=== PATIENT | female | born 1935 | race Caucasian/White ===

== ENCOUNTER 2016-07-11 21:04 | Inpatient (IN) | payer BC ==
--- NOTE | ~2016-07-11 | DS ---
Discharge Summary [facility] [address] [facility] [place] [place]. [address] NAME: STAN DA SILVA : 37 STATUS : DIS IN PAT#: [id number] AGE: 81 ADM/REG DATE : 07/11/16 MR#: [id number] REPORT SERV DATE: 07/26/16 DICTATED BY: HIRAM PRYOR DATE: 07/25/16 REPORT STATUS : Draft TRANSCRIBED BY: YANA DATE: 07/25/16 Data Collection from hospitalization DISCHARGE DIAGNOSES: 1. End-stage renal disease. 2. Bipolar disorder. 3. Hepatitis. 4. Decreased oral intake. 5. Hypertension. 6. Pulmonary edema. 7. Chronic obstructive pulmonary disease. 8. Obstructive sleep apnea. 9. Anemia. 10.Bipolar disorder. 11.Chronic diastolic congestive heart failure. 12.History of herpes zoster. CONSULTATIONS: 1. Ramona Beauchamp M.D. 2. Barry Del Cid M.D. PROCEDURES PERFORMED: 1. CTA of the chest on 07/11/2016. 2. Limited ultrasound of the chest on 07/15/2016. MEDICATIONS: Proventil one nebulized inhaler three times a day as needed; Xanax 0.25 mg daily as needed; Norvasc 5 mg daily; aspirin 81 mg daily; Triphrocaps one capsule daily; Emma-Karen one tablet daily; Pulmicort 0.5 mg via inhaler twice a day; Wellbutrin SR 200 mg every morning and 100 mg every evening; Miacalcin one spray nasally daily; Coreg 3.125 mg twice a day; Colace 100 mg twice a day; ferrous sulfate 325 mg daily; Lasix 40 mg on Saturday, , Saturday, Saturday; Lamictal 25 mg daily; Fosrenol 500 mg with meals, Synthroid 125 mcg daily, Megace oral suspension 400 mg daily, melatonin 3 mg at bedtime, Nitrostat 0.4 mg sublingually as needed, Prilosec 40 mg daily, MiraLAX powder one packet daily, and Marilyn-Colace one tablet at bedtime. CONDITION AT DISCHARGE: Stable. DISPOSITION: The patient was discharged home to be followed by home health care on a renal diet with activities as instructed. She would follow up with outpatient hemodialysis as scheduled. HOSPITAL COURSE: This is a 81-year-old female who dialyzes via a left upper extremity fistula at [facility] on Mondays, Wednesdays, and Fridays. She apparently had an access infiltration the week prior to this admission and required vascular intervention with fistulogram and [facility]ER on 07/06/2016. Her daughter reports that she had a low-grade temperature of approximately 100 on 07/09/2016. She was on dialysis and completed her treatment on the day of this admission, but her heart rate was elevated and they checked a pulse ox and it registered only 80% saturation. She was sent to the emergency room with Discharge Summary [address] [id number] [facility] [place]. [address] NAME: STAN DA SILVA : 37 STATUS : DIS IN PAT#: [id number] AGE: 81 ADM/REG DATE : 07/11/16 MR#: [id number] REPORT SERV DATE: 07/26/16 DICTATED BY: HIRAM PRYOR DATE: 07/25/16 REPORT STATUS : Draft TRANSCRIBED BY: YANA DATE: 07/25/16 concerns of pulmonary embolus. On arrival to the emergency room, her ABG demonstrated a pH of 7.53, pCO2 of 32, and CO2 of 47. Her temperature was in excess of 100 at 100.3. Chest x ray was abnormal with an appearance of what appeared to be either diffuse infiltrate versus fluid. She was admitted to the hospital at this time for further evaluation and treatment. Upon admission, cultures and antibiotics were going to be obtained. A CT scan of the chest was requested. Nebulizer treatments were going to began. A CTA of the chest was performed. The following day, she was seen by Dr. Ramona Beauchamp. Dr. Beauchamp had been asked to see the patient regarding hypoxia. She had dialyzed the day previously, but did not notice any improvement in her dyspnea. It was notable that she had a surgical revision of her fistula and fistulogram six days prior to this at [facility]. Her dyspnea started soon after this procedure. She said that her dyspnea was worse at this time than it was the day previously. She had been on empiric Zosyn and vancomycin for possible pneumonia. Chest imaging was consistent with volume overload. CTA did not reveal any pulmonary embolism. There was cardiomegaly with diffuse interstitial infiltrates consistent with pulmonary edema. There were bilateral pleural effusions with the right being larger than the left. There was associated bibasilar atelectasis. She had evidence for pulmonary edema on CT angiogram and chest x-ray. It was felt that her symptoms were likely related to her volume overload, which may be related to her end-stage renal disease versus cardiogenic. Hemodialysis therapy would be continued. She reported a recent decline in her appetite. She still had persistent shortness of breath. On 07/13/2016, her breathing was much better. She had no cough. She felt like the nebulizers were helping. A Palliative Care consultation was requested. The patient was very emotional and tearful when we discussed possible thoracentesis if needed. Her effusions were better, but she still had a significant right effusion. She was seen by Dr. Barry Del Cid of Palliative Care. The patient was uncertain how much longer to continue hemodialysis as she was finding it harder to do and she never planned on this being a long-term plan of care. Outpatient followup was offered to set goals. Hemodialysis therapy continued. On 07/14/2016, she was feeling much better. She was now agreeable to undergo a thoracentesis. Bronchodilator treatment continued. Chest x-ray showed marked improvement and pulmonary edema. Magnesium supplementation was given. The following day, she felt much better. There was no significant effusion and her thoracentesis was canceled. A limited ultrasound of the chest had been performed. Discharge planning was performed. On 07/16/2016, she continued to do well. Discharge instructions were given. Due to her improved and stable condition, she was discharged home to be followed by home health care with the above-stated instructions. Information collected by: Poornima Toney I submit the above information as my discharge summary. TG/YANA Hiram Pryor M.D. / [id number] Discharge Summary [address] [address] NAME: STAN DA SILVA : 37 STATUS : DIS IN [facility]#: [id number] AGE: 81 ADM/REG DATE : 07/11/16 MR#: [id number] REPORT SERV DATE: 07/26/16 DICTATED BY: HIRAM PRYOR DATE: 07/25/16 REPORT STATUS : Draft TRANSCRIBED BY: YANA DATE: 07/25/16 CC: Harshil Sim M.D. Robert Warren Goldmann, M.D.
--- NOTE | ~2016-07-11 | CN ---
Consultation Report [address] [place]. [address] NAME: STAN DUPONT : 37 STATUS : ADM IN PAT#: [id number] AGE: 81 ADM/REG DATE : 07/11/16 MR#: [id number] REPORT SERV DATE: 07/12/16 DICTATED BY: RAMONA TUTTLE DATE: 07/12/16 REPORT STATUS : Draft TRANSCRIBED BY: MODL DATE: 07/12/16 PULMONARY CONSULTATION DATE OF CONSULTATION: 07/12/2016 REASON FOR CONSULTATION: Hypoxia. HISTORY OF PRESENT ILLNESS: Ms. Dupont is a 81-year-old white female, lifelong nonsmoker, without prior pulmonary diagnosis, who was admitted complaining of five to six days of malaise, increasing shortness of breath, and low-grade fever with temperatures to 100.5 degrees. She denies cough, wheezing, or sputum production. Pulmonary was consulted secondary to hypoxia. The patient has a history of end-stage renal disease, on hemodialysis every Saturday, Saturday, and Saturday. She was dialyzed yesterday, but did not note any improvement in her dyspnea. It is notable that she had a surgical revision of her fistula and fistulogram six days ago at [facility]. Her dyspnea started soon after this procedure. No medical records from that are available for review. She states her dyspnea is worse today than it was yesterday. She has been on empiric Zosyn and vancomycin for possible pneumonia. Her chest imaging here at this admission is consistent with volume overload. PAST MEDICAL HISTORY: 1. She denies a past medical history of COPD or asthma. 2. She denies obstructive sleep apnea. 3. End-stage renal disease, secondary to immune complex glomerulonephritis. 4. Congestive heart failure, diastolic dysfunction. 5. Hypertension. 6. Bipolar disorder. 7. Right total hip arthroplasty. 8. GERD. 9. Irritable bowel syndrome. 10.Previous herpes zoster. 11.Prior right shoulder surgery. 12.Appendectomy. 13.Tubal ligation. 14.Cholecystectomy. 15.Left knee surgery. 16.Previous sinus surgery. FAMILY HISTORY: Smoker mother had lung cancer. Consultation Report [address] [id number] [facility] [place]. [address] NAME: STAN DUPONT : 37 STATUS : ADM IN PAT#: [id number] AGE: 81 ADM/REG DATE : 07/11/16 MR#: [id number] REPORT SERV DATE: 07/12/16 DICTATED BY: RAMONA TUTTLE DATE: 07/12/16 REPORT STATUS : Draft TRANSCRIBED BY: YANA DATE: 07/12/16 SOCIAL HISTORY: Ms. Dupont is a lifelong nonsmoker. She denies past/present drug use, ethanol intake, occupational exposures, or chewing tobacco. She is and has three children. MEDICATIONS: Outpatient and inpatient medications were reviewed and are as documented in the record. She was on no outpatient pulmonary medications and denies ever being on inhalers or nebulized medications. ALLERGIES: HYDROCODONE, CODEINE, TOVIAZ, AND ARANESP. REVIEW OF SYSTEMS: A 10-point system review was conducted and is remarkable for the symptoms as described in the history of present illness: PHYSICAL EXAMINATION: VITAL SIGNS: Temperature 99.6 degrees, heart rate 96, blood pressure 173/79, respiratory rate 20, oxygen saturation 94% on supplemental oxygen at a flow rate of 14 L/minute. GENERAL: Ill-appearing, pale white female. Alert, oriented, in no apparent distress. HEENT: Normocephalic and atraumatic. There is no scleral icterus. The conjunctivae are clear. The oropharynx is clear and dry. NECK: Supple. No lymphadenopathy was noted. LUNGS: Good effort. There are diminished breath sounds at both bases with the right being worse than the left. There are bibasilar crackles, but no wheezes or rhonchi. HEART: Regular rate and rhythm. No S3 or S4 was noted. No ectopy was noted. ABDOMEN: Soft, nontender, nondistended. There are normal bowel sounds in all four quadrants. BILATERAL EXTREMITIES: There is no clubbing or cyanosis. There is nonpitting edema in both lower extremities. NEUROLOGICAL: Limited exam was conducted and was found to be nonfocal. SKIN: Generalized pallor. There are scattered ecchymoses on the upper and lower extremities. LABORATORY RESULTS: Labs were reviewed and are as documented in the record. Notable labs include a white blood cell count of 9.1. The procalcitonin is 0.63. Arterial blood gas #1 on admission revealed a pH of 7.53, pCO2 of 32, and pO2 of 47. This was done on room air. A subsequent arterial blood gas revealed a pH of 7.49, pCO2 of 31, pO2 of 68 on supplemental oxygen at 60%. IMAGING: The chest x-ray done this admission revealed diffuse interstitial opacities, consistent with pulmonary edema. There were small bilateral effusions and cardiomegaly. CT angiogram done this admission did not reveal any pulmonary embolism. There is Consultation Report [place] [address] [id number] [facility] [address] NAME: STAN DUPONT : 37 STATUS : ADM IN PAT#: [id number] AGE: 81 ADM/REG DATE : 07/11/16 MR#: [id number] REPORT SERV DATE: 07/12/16 DICTATED BY: RAMONA TUTTLE DATE: 07/12/16 REPORT STATUS : Draft TRANSCRIBED BY: YANA DATE: 07/12/16 cardiomegaly with diffuse interstitial infiltrates, consistent with pulmonary edema. There are bilateral pleural effusions with the right being larger than the left. There is associated bibasilar atelectasis. ASSESSMENT AND PLAN: Ms. Stan Dupont is a 81-year-old white female, lifelong nonsmoker, without previous pulmonary diagnosis, who was admitted with hypoxia and associated worsening shortness of breath as well as malaise and low-grade fevers. She has evidence of pulmonary edema on CT angiogram and chest x-ray as noted above. Her symptoms are likely related to her volume overload, which may be related to her end-stage renal disease versus cardiogenic. Recommend hemodialysis as per Nephrology. As noted above, she is on empiric antibiotics with vancomycin and Zosyn. There is no evidence of active pulmonary infection, though her procalcitonin is elevated. This is likely related to her end-stage renal disease. It is reasonable to continue her empiric antibiotics for now. A sputum has been ordered, though the patient is currently unable to expectorate. 1. Recommend titrating supplemental oxygen as needed. She may ultimately need Vapotherm if her pulmonary edema does not improve. 2. We will add bronchodilators and nebulized steroids to her regimen as this may be of some benefit, particularly in light of her significant dyspnea. 3. If she tires, then may use BiPAP. 4. Recommend improving pulmonary toilet, so EzPAP will be added to her regimen. 5. Would follow her chest x-ray. She should improve with hemodialysis. 6. Recommend checking an echocardiogram when her volume status has improved. Thank you very much for this consultation. VALDEZ/YANA Ramona Tuttle M.D. / [id number] CC: Harshil Sim M.D.
--- NOTE | ~2016-07-11 | HP ---
History And Physical [id number] [facility] [place]. [address] NAME: STAN DUPONT : 37 STATUS : ADM IN [facility]#: [id number] AGE: 81 ADM/REG DATE : 07/11/16 MR#: [id number] REPORT SERV DATE: 07/12/16 DICTATED BY: RAYMUNDO SALINAS DATE: 07/11/16 REPORT STATUS : Draft TRANSCRIBED BY: MODL DATE: 07/11/16 DATE OF ADMISSION: 07/11/2016 INDICATION FOR ADMISSION: Fever, hypoxemia. HISTORY OF PRESENT ILLNESS: Ms. Dupont is a 81-year-old female who dialyzes by left upper extremity fistula at [facility] on Saturday, Saturday, and Saturday. She apparently had an access infiltration last week, and required vascular intervention with fistulogram and [employer] on 07/06/2016. Her daughter reports that she had a low-grade temp of approximately 100 degrees on 07/09/2016. She was on dialysis and completed her treatment today, but her heart rate was elevated and they checked pulse ox, and it registered only 80% saturation. She was sent to the emergency room with concerns of pulmonary embolus. Upon arrival to the emergency room, her ABG demonstrated a pH of 7.53, PCO2 of 32, and PO2 of 47. She had a temp in excess of 100 at 100.3. Chest x-ray was abnormal with an appearance with what appeared to be either diffuse infiltrate versus fluid. PAST MEDICAL HISTORY: End-stage renal disease dialyzing Saturday, Saturday, Saturday at [facility] by left upper extremity AV fistula. History of immune complex GN by renal biopsy, progressing to end-stage disease. History of hepatitis, COPD, hypertension, bipolar disorder, hypothyroidism, chronic diastolic CHF, obstructive sleep apnea on CPAP, herpes zoster infection, and right hip fracture requiring right total hip arthroplasty. PAST SURGICAL HISTORY: Left knee surgery, right shoulder surgery, appendectomy, cholecystectomy, tubal ligation, sinus surgery, and right hip surgery. ALLERGIES: TO ARANESP, LORTAB, TOVIAZ, AND CODEINE. SOCIAL HISTORY: The patient lives on [address] [place], active Mandaeism, 25 years ago. Two daughters and one son, with a one daughter living locally. She used to work for the [employer]. No tobacco use or alcohol use. FAMILY HISTORY: Mother with lung cancer. Strong family history of dementia, heart disease, and gout. No end-stage renal disease. MEDICATIONS: Norvasc, Wellbutrin, Tums, Coreg, Colace, ferrous sulfate, Fosrenol, Synthroid, B complex with C and folic acid, Prilosec, MiraLAX, Coumadin, sliding scale, Tylenol, Xanax, Percocet. REVIEW OF SYSTEMS: HEENT: No change in visual acuity. No epistaxis. No otic infection. No pharyngitis. PULMONARY: Some mild shortness of breath. Nonproductive cough. No pleuritic chest pain. CARDIAC: No angina. Has chronic lower extremity edema. No syncope. GI: Mild nausea. No vomiting, melena, or diarrhea. : No dysuria. No gross hematuria. MUSCULOSKELETAL: Chronic pain in right hip. INTEGUMENT: No rash. No skin lesions. No itching. History And Physical [address] [address] NAME: STAN DUPONT : 37 STATUS : ADM IN [facility]#: [id number] AGE: 81 ADM/REG DATE : 07/11/16 MR#: [id number] REPORT SERV DATE: 07/12/16 DICTATED BY: RAYMUNDO SALINAS DATE: 07/11/16 REPORT STATUS : Draft TRANSCRIBED BY: YANA DATE: 07/11/16 NEUROLOGIC: No lateralizing weakness or seizure activity. Remainder of 12-point review of systems is negative. PHYSICAL EXAMINATION: GENERAL: Pleasant white female, alert, cooperative. VITAL SIGNS: Temp 100.3, blood pressure 183/87, pulse of 99, respiratory rate 14. HEENT: Eyes, no scleral icterus. Pupils equal, reactive to light. Extraocular movement intact. Nares patent. No discharge. Throat, no injection. Mucous membranes moist. NECK: No thyromegaly, masses, or bruits. CHEST/LUNGS: Late crackles laterally, posteriorly. No wheezing. No dullness. CARDIAC: Regular rate and rhythm, 1/6 systolic ejection murmur. No gallop. No rub. ABDOMEN: Supple. Normoactive bowel sounds. Nontender. No hepatosplenomegaly. BREASTS: Not performed. PELVIC: Not performed RECTAL: Not performed. EXTREMITIES: Trace edema. No calf tenderness. DERMIS: No rash. No skin lesions. MUSCULOSKELETAL: No deformity. No joint tenderness. NEUROLOGIC: Cranial nerves intact. No lateralizing weakness. IMPRESSION: 1. Acute hypoxemic respiratory failure. Etiologies include possible differential of infection, congestive heart failure, pulmonary embolus. 2. End-stage renal disease, dialyzing Saturday, Saturday, Saturday at [facility] by left upper extremity AV fistula with recent infiltration and recent angioplasty. 3. Chronic obstructive pulmonary disease. 4. Hypertension. 5. Bipolar disease. 6. Hypothyroidism. 7. Chronic diastolic congestive heart failure. 8. Obstructive sleep apnea. PLAN: 1. Cultures antibiotics. 2. CT scan of chest. 3. Neb treatment. KADE/YANA Raymundo Salinas M.D. / [id number] History And Physical [address] [address] NAME: STAN DUPONT : 37 STATUS : ADM IN [facility]#: [id number] AGE: 81 ADM/REG DATE : 07/11/16 MR#: [id number] REPORT SERV DATE: 07/12/16 DICTATED BY: RAYMUNDO SALINAS DATE: 07/11/16 REPORT STATUS : Draft TRANSCRIBED BY: YANA DATE: 07/11/16 CC: Harshil Sim M.D.
[2016-07-11 20:25] LABS: INSTRUMENT SERIAL # 8087
[2016-07-11 20:26] LABS: BE (BASE EXCESS) 3.3 MEQ/L (0 +/- 2.5); CARBOXYHEMOGLOBIN 2.4 % (0-3); HCO3 (ACTUAL BICARBONATE) 25.8 MEQ/L (23-27); HEMOBLOGIN CONTENT 10.8 G/DL (12-16); METHEMOGLOBIN 0.3 % (0-3); O2 CONTENT 12.4 VOL% (18-24); OPERATOR ID 17589; PCO2 (CO2 TENSION) 32 MMHG (35-45); PO2 (O2 TENSION) 47 MMHG (79-93); SAMPLE Arterial; pH 7.53 (7.37-7.43)
[~2016-07-11 21:04] MED LIST: ANTACID PO; ASAB PO; BENEFIBE6 PO; BENTYL10 PO; BISR PR; BIST PO; CIP2 PO; COREG12 PO; COREG6 PO; DEMA100 PO; DSS PO; FLAG500TAB PO; FOSRENOL1000 MG PO; GEODON20 PO; HALF81 PO; IMOD PO; KLONO5 PO; L20 PO; LATUDA20 MG PO; LEVOTHYROXIN100 MCG PO; LEVOTHYROXIN75 MCG PO; LEVOTHYROXIN88 MCG PO; LIQUITEARS OPH; MELATONIN5 M1 PO; MIRALAXPKT PO; NITROSTAT0.4 MG SL; NORV10 PO; NORV5 PO; PR12.5 PO; PRILO PO; PROCRIT40 IV; PROCRIT40 SC; RENAL SFTGLS1 MG PO; RENATAB1 OR; RESTASIS OPH; SEROQUEL50 MG PO; SODBICAR10 PO; STOOL SOFTEN100 MG PO; SYN1 PO; SYSTANE OP; SYSTANE OPH; TRIPHROCAPS PO; TUMSROLL PO; VITC500 PO; VITD PO; WELLBUTRIN200 MG PO; WELLSR100 PO; WELLSR150 PO; X25 PO; X5 PO; ZOFRAN4 PO; ZOFRAN8 PO; [UNRECOGNIZED DRUG - OTHER]; [UNRECOGNIZED DRUG - OTHER] OR; [UNRECOGNIZED DRUG - OTHER] PO
[2016-07-11 21:56] LABS: BASOPHILS 0.4 %; BASOPHILS ABSOLUTE 0.04 10/3/uL (0.0-0.16); EOSINOPHILS 1.7 %; EOSINOPHILS ABSOLUTE 0.15 10/3/uL (0.0-0.53); HEMATOCRIT 29.9 % (36.0-48.0); IMMATURE GRANULOCYTES 0.2 %; IMMATURE GRANULOCYTES ABSOLUTE 0.02 10/3/uL (0.0-0.11); LYMPHOCYTES 18.2 %; LYMPHOCYTES ABSOLUTE 1.65 10/3/uL (0.67-4.30); MEAN CORPUS HGB CONC 33.4 g/dL (32.0-36.0); MEAN CORPUSCULAR HEMOGLOB 34.6 pg (26.0-34.0); MEAN PLATELET VOLUME 9.5 fL (9.2-13.0); MONOCYTES 7.7 %; NEUTROPHILS 71.8 %; NEUTROPHILS ABSOLUTE 6.49 10/3/uL (2.02-8.40); PLATELET COUNT 175 10/3/uL (150-400); RBC DISTRIBUTION WIDTH 14.9 % (12.0-16.0); RED CELL COUNT 2.89 10/6/uL (4.0-5.6)
[2016-07-11 21:57] LABS: ER CBC TAT 0 Hrs 08 Mins; MANUAL DIFF NO %; MEAN CORPUSCULAR VOLUME 103.5 fL (80-100); WHITE BLOOD CELLS 9.1 10/3/uL (4.5-10.5)
[2016-07-11 22:16] LABS: A/G RATIO 0.9 (0.7-1.9); ALBUMIN 2.8 G/DL (3.5-5.0); CALCIUM, SERUM 7.9 MG/DL (8.5-10.4); CHLORIDE, SERUM 102 MMOL/L (96-112); CO2 (CARBON DIOXIDE) 27 MMOL/L (24-34); SGOT(AST) 15 U/L (5-40); SGPT(ALT) 13 U/L (5-65); SODIUM, SERUM 138 MMOL/L (135-148); TOTAL BILIRUBIN 0.6 MG/DL (0-1.2); TOTAL PROTEIN 5.8 G/DL (6.0-8.5)
[2016-07-11 22:17] LABS: ALKALINE PHOSPHATASE 83 U/L (45-117); BUN (BLOOD UREA NITROGEN) 14 MG/DL (6-23); CREATININE 2.12 MG/DL (0.55-1.02); GFR AFRICAN AMERICAN 25 ML/MIN (>=60); GFR NON AFRICAN AMERICAN 22 ML/MIN (>=60); GLUCOSE, SERUM 116 MG/DL (60-99)
[2016-07-11] MEDS ORDERED: X25 PO (22:18)
[2016-07-11] MEDS ORDERED: ASAB PO (22:19)
[2016-07-11] MEDS ORDERED: NORV5 PO (22:19)
[2016-07-11] MEDS ORDERED: FERROUS SULF325 M1 PO (22:20)
[2016-07-11] MEDS ORDERED: COREG3 PO (22:20)
[2016-07-11] MEDS ORDERED: DSS PO (22:20)
[2016-07-11] MEDS ORDERED: L40 PO (22:21)
[2016-07-11] MEDS ORDERED: LAMICTAL25 PO (22:21)
[2016-07-11] MEDS ORDERED: FOSRENOL PO (22:21)
[2016-07-11] MEDS ORDERED: NITROSTAT0.4 MG SL (22:22)
[2016-07-11] MEDS ORDERED: PCET PO (22:22)
[2016-07-11] MEDS ORDERED: MELA3 PO (22:22)
[2016-07-11] MEDS ORDERED: MIRALAX POWDER1 PKT PO (22:22)
[2016-07-11] MEDS ORDERED: PERI-COLACE1 TAB PO (22:23)
[2016-07-11] MEDS ORDERED: RENA-VITE PO (22:23)
[2016-07-11] MEDS ORDERED: PRILOSEC40 MG PO (22:23)
[2016-07-11] MEDS ORDERED: TRIPHROCAPS PO (22:24)
[2016-07-11] MEDS ORDERED: SYN125 PO (22:24)
[2016-07-11] MEDS ORDERED: WELLSR100 PO ×2 (22:24)
[2016-07-11] MEDS ORDERED: MIACALCIN NAS (22:25)
[2016-07-11 22:26] LABS: INFLUENZA A SCREEN NEGATIVE (NEGATIVE); INFLUENZA B SCREEN NEGATIVE (NEGATIVE)
[2016-07-11 22:54] LABS: ASCORBIC ACID (UR NOT ORDER) NEG (NEG); BILIRUBIN, URINE NEGATIVE (NEG); ER URINALYSIS TAT 0 Hrs 09 Mins; KETONE, URINE NEGATIVE (NEG); LEUKOCYTE ESTERASE(NOT OR NEG (NEG); NITRITE (URINE) NEG (NEG); WBC (NOT ORDERED) (RFLEX) 2 (0-5)
[2016-07-12 04:24] LABS: ALLENS TEST Pos; CARBOXYHEMOGLOBIN 0.6 % (0-3); DEVICE NC; HCO3 (ACTUAL BICARBONATE) 22.8 MEQ/L (23-27); HEMOBLOGIN CONTENT 11.3 G/DL (12-16); INSTRUMENT SERIAL # 11843; METHEMOGLOBIN 0.2 % (0-3); O2 CONTENT 14.7 VOL% (18-24); OPERATOR ID 30014; PCO2 (CO2 TENSION) 31 MMHG (35-45); PO2 (O2 TENSION) 68 MMHG (79-93); SAMPLE Arterial; pH 7.49 (7.37-7.43)
[2016-07-12 10:09] LABS: ALBUMIN 2.9 G/DL (3.5-5.0); CHLORIDE, SERUM 105 MMOL/L (96-112); CO2 (CARBON DIOXIDE) 25 MMOL/L (24-34); GLUCOSE, SERUM 109 MG/DL (60-99); POTASSIUM, SERUM 3.3 MMOL/L (3.5-5.3); SODIUM, SERUM 140 MMOL/L (135-148)
[2016-07-12 10:11] LABS: BUN (BLOOD UREA NITROGEN) 19 MG/DL (6-23); CREATININE 2.82 MG/DL (0.55-1.02); GFR AFRICAN AMERICAN 18 ML/MIN (>=60); GFR NON AFRICAN AMERICAN 15 ML/MIN (>=60); PHOSPHORUS, SERUM 2.8 MG/DL (2.5-4.5); TROPONIN I 0.06 NG/ML (<0.05)
[2016-07-13 05:59] LABS: BASOPHILS 0.9 %; BASOPHILS ABSOLUTE 0.06 10/3/uL (0.0-0.16); EOSINOPHILS 5.5 %; EOSINOPHILS ABSOLUTE 0.36 10/3/uL (0.0-0.53); HEMATOCRIT 28.9 % (36.0-48.0); HEMOGLOBIN 9.4 g/dL (12.0-16.0); IMMATURE GRANULOCYTES 0.2 %; IMMATURE GRANULOCYTES ABSOLUTE 0.01 10/3/uL (0.0-0.11); LYMPHOCYTES 21.9 %; LYMPHOCYTES ABSOLUTE 1.44 10/3/uL (0.67-4.30); MEAN CORPUS HGB CONC 32.5 g/dL (32.0-36.0); MEAN CORPUSCULAR HEMOGLOB 34.4 pg (26.0-34.0); MEAN CORPUSCULAR VOLUME 105.9 fL (80-100); MEAN PLATELET VOLUME 9.4 fL (9.2-13.0); MONOCYTES 11.1 %; MONOCYTES ABSOLUTE 0.73 10/3/uL (0.21-1.20); NEUTROPHILS 60.4 %; NEUTROPHILS ABSOLUTE 3.98 10/3/uL (2.02-8.40); PLATELET COUNT 201 10/3/uL (150-400); RED CELL COUNT 2.73 10/6/uL (4.0-5.6); WHITE BLOOD CELLS 6.6 10/3/uL (4.5-10.5)
[2016-07-13 06:10] LABS: MANUAL DIFF NO %
[2016-07-13 06:16] LABS: ALBUMIN 2.6 G/DL (3.5-5.0); BUN (BLOOD UREA NITROGEN) 19 MG/DL (6-23); CALCIUM, SERUM 7.2 MG/DL (8.5-10.4); CHLORIDE, SERUM 109 MMOL/L (96-112); CO2 (CARBON DIOXIDE) 24 MMOL/L (24-34); CREATININE 2.83 MG/DL (0.55-1.02); GFR AFRICAN AMERICAN 18 ML/MIN (>=60); GFR NON AFRICAN AMERICAN 15 ML/MIN (>=60); GLUCOSE, SERUM 97 MG/DL (60-99); PHOSPHORUS, SERUM 2.1 MG/DL (2.5-4.5); SODIUM, SERUM 145 MMOL/L (135-148)
[2016-07-13 06:17] LABS: POTASSIUM, SERUM 4.2 MMOL/L (3.5-5.3)
[2016-07-14 05:41] LABS: BASOPHILS 0.8 %; BASOPHILS ABSOLUTE 0.05 10/3/uL (0.0-0.16); EOSINOPHILS 7.6 %; EOSINOPHILS ABSOLUTE 0.49 10/3/uL (0.0-0.53); HEMATOCRIT 31.5 % (36.0-48.0); HEMOGLOBIN 9.9 g/dL (12.0-16.0); IMMATURE GRANULOCYTES 0.2 %; IMMATURE GRANULOCYTES ABSOLUTE 0.01 10/3/uL (0.0-0.11); LYMPHOCYTES ABSOLUTE 1.94 10/3/uL (0.67-4.30); MEAN CORPUS HGB CONC 31.4 g/dL (32.0-36.0); MEAN CORPUSCULAR HEMOGLOB 33.8 pg (26.0-34.0); MEAN CORPUSCULAR VOLUME 107.5 fL (80-100); MEAN PLATELET VOLUME 9.4 fL (9.2-13.0); MONOCYTES 7.7 %; NEUTROPHILS 53.7 %; NEUTROPHILS ABSOLUTE 3.47 10/3/uL (2.02-8.40); PLATELET COUNT 256 10/3/uL (150-400); RBC DISTRIBUTION WIDTH 15.1 % (12.0-16.0); RED CELL COUNT 2.93 10/6/uL (4.0-5.6); WHITE BLOOD CELLS 6.5 10/3/uL (4.5-10.5)
[2016-07-14 05:42] LABS: MANUAL DIFF NO %
[2016-07-14 06:00] LABS: ALBUMIN 3.1 G/DL (3.5-5.0); BUN (BLOOD UREA NITROGEN) 13 MG/DL (6-23); CALCIUM, SERUM 8.1 MG/DL (8.5-10.4); CHLORIDE, SERUM 107 MMOL/L (96-112); CO2 (CARBON DIOXIDE) 28 MMOL/L (24-34); CREATININE 2.79 MG/DL (0.55-1.02); GFR AFRICAN AMERICAN 18 ML/MIN (>=60); GFR NON AFRICAN AMERICAN 15 ML/MIN (>=60); GLUCOSE, SERUM 105 MG/DL (60-99); PHOSPHORUS, SERUM 1.6 MG/DL (2.5-4.5); SODIUM, SERUM 143 MMOL/L (135-148)
[2016-07-14 12:06] LABS: INTERNATIONAL NORMAL RATI 1.2 UNITS (-); PARTIAL THROMBO TIME 37.4 SEC (22.5-37.2)
[2016-07-14 12:07] LABS: PROTIME (NOT ORD) 14.8 SEC (12.0-14.5)
[2016-07-16 09:20] LABS: BASOPHILS 1.4 %; BASOPHILS ABSOLUTE 0.11 10/3/uL (0.0-0.16); EOSINOPHILS 5.2 %; EOSINOPHILS ABSOLUTE 0.41 10/3/uL (0.0-0.53); HEMATOCRIT 31.3 % (36.0-48.0); HEMOGLOBIN 10.4 g/dL (12.0-16.0); IMMATURE GRANULOCYTES 0.4 %; IMMATURE GRANULOCYTES ABSOLUTE 0.03 10/3/uL (0.0-0.11); LYMPHOCYTES ABSOLUTE 3.22 10/3/uL (0.67-4.30); MANUAL DIFF NO %; MEAN CORPUS HGB CONC 33.2 g/dL (32.0-36.0); MEAN CORPUSCULAR HEMOGLOB 34.4 pg (26.0-34.0); MEAN CORPUSCULAR VOLUME 103.6 fL (80-100); MONOCYTES 6.4 %; NEUTROPHILS 45.6 %; NEUTROPHILS ABSOLUTE 3.58 10/3/uL (2.02-8.40); PLATELET COUNT 378 10/3/uL (150-400); RED CELL COUNT 3.02 10/6/uL (4.0-5.6); WHITE BLOOD CELLS 7.9 10/3/uL (4.5-10.5)
[2016-07-16 09:33] LABS: ALBUMIN 3.3 G/DL (3.5-5.0); CALCIUM, SERUM 8.8 MG/DL (8.5-10.4); CHLORIDE, SERUM 106 MMOL/L (96-112); GLUCOSE, SERUM 117 MG/DL (60-99); POTASSIUM, SERUM 3.9 MMOL/L (3.5-5.3); SODIUM, SERUM 141 MMOL/L (135-148)
[2016-07-16 09:34] LABS: BUN (BLOOD UREA NITROGEN) 34 MG/DL (6-23); CO2 (CARBON DIOXIDE) 23 MMOL/L (24-34); CREATININE 5.04 MG/DL (0.55-1.02); GFR AFRICAN AMERICAN 9 ML/MIN (>=60); GFR NON AFRICAN AMERICAN 8 ML/MIN (>=60); PHOSPHORUS, SERUM 3.4 MG/DL (2.5-4.5)
[2016-07-16] MEDS ORDERED: PULRESP.5 INH ×2 (13:58→13:59)
[2016-07-16] MEDS ORDERED: ALBUTEROL5 INH (14:00)
[2016-07-16] MEDS ORDERED: MEGACEUDL PO (14:01)
[2016-10-08] MEDS ORDERED: COREG6 PO (08:55)
[2016-10-08] MEDS ORDERED: LAMICTAL10 PO (08:55)
[2016-10-08] MEDS ORDERED: TUMSROLL PO (09:00)
[2016-10-08] MEDS ORDERED: RENAL SFTGLS1 MG PO (09:00)
[2016-10-08] MEDS ORDERED: BIST PO (09:01)
[2016-10-08] MEDS ORDERED: IMOD PO (09:01)
[2016-10-08] MEDS ORDERED: FENESIN IR400 MG PO (09:02)
[2016-10-08] MEDS ORDERED: AT25 PO (09:03)
[2016-10-08] MEDS ORDERED: ENDOCET1 TAB PO (09:04)
[2016-10-08] MEDS ORDERED: LIPITOR20 PO (09:04)
[2016-10-08] MEDS ORDERED: PROCRIT (09:06)
[2016-10-08] MEDS ORDERED: WELLSR100 PO (11:00)
[2016-12-18] MEDS ORDERED: LATUDA40 MG PO (08:09)
== END 2016-07-16 15:46 | disposition home health service (06) | DRG 291 ==
LOC: ER 21:04 → 2SO 23:21
PROVIDERS: Hospitalist; Internal Medicine; Internal Medicine Nephrology; Nurse Practitioner
PROC: 5A1D60Z (ICD-10-PCS; principal; 2016-07-12)
DX: I13.2 Hypertensive heart and chronic kidney disease with heart failure and with stage 5 chronic kidney disease, or end stage renal disease (principal); J96.01 Acute respiratory failure with hypoxia; N18.6 End stage renal disease; I50.33 Acute on chronic diastolic (congestive) heart failure; J44.9 Chronic obstructive pulmonary disease, unspecified; Z51.5 Encounter for palliative care; F31.9 Bipolar disorder, unspecified; K21.9 Gastro-esophageal reflux disease without esophagitis; E03.9 Hypothyroidism, unspecified; G47.33 Obstructive sleep apnea (adult) (pediatric); Z99.2 Dependence on renal dialysis; Z80.1 Family history of malignant neoplasm of trachea, bronchus and lung; Z88.5 Allergy status to narcotic agent; Z88.8 Allergy status to other drugs, medicaments and biological substances; Z96.641 Presence of right artificial hip joint
CPT/HCPCS: 36600; 71010; 71020; 71275; 76604; 80053; 80069; 80202; 81001; 82805; 83735; 83880; 84145; 84484; 85025; 85610; 85730; 87040; 87070; 87205; 87804; 93005; 94640; 96374; 99285; A9270-GY; G0257; J0456; J0692; J2543; J3370; P9047; Q9967

== ENCOUNTER 2016-08-25 15:03 | Inpatient (IN) | payer BC ==
--- NOTE | ~2016-08-25 | HP ---
History And Physical [id number] [facility] [place]. [address] NAME: STAN DUPONT : 37 STATUS : ADM Brad PAT#: [id number] AGE: 81 ADM/REG DATE : 08/25/16 MR#: [id number] REPORT SERV DATE: 08/26/16 DICTATED BY: RAYMUNDO GARSIA DATE: 08/25/16 REPORT STATUS : Draft TRANSCRIBED BY: MODL DATE: 08/25/16 DATE OF ADMISSION: 08/25/2016 NEPHROLOGY HISTORY AND PHYSICAL INDICATION FOR HOSPITALIZATION: Shortness of breath with congestive heart failure and UTI. HISTORY OF PRESENT ILLNESS: Ms. Dupont is a 81-year-old female who dialyzes by left upper extremity fistula at [facility] on Saturday, Saturday, and Saturday. She presented to the emergency room complaining of weakness, fever, and dysuria. She had recently been started on Cipro in the outpatient setting, but was still having symptoms. Her urinalysis demonstrated 80 wbc's and small leukocyte esterase. Her CBC revealed white count of 5200 and hemoglobin of 10.6 while her potassium was 3.3 and creatinine was 3.9. Her chest x-ray was suggestive of CHF. She had a blood gas on room air with PO2 of 62 and O2 sat of 91. PAST MEDICAL HISTORY: End-stage renal disease, dialyzing Saturday, Saturday, and Saturday at [facility] by left upper extremity AV fistula; chronic diastolic CHF; COPD; obstructive sleep apnea, on CPAP; bipolar illness; hypertension; history of hepatitis; hypothyroidism; remote herpes zoster infection; and anemia. PAST SURGICAL HISTORY: Left knee surgery, right shoulder surgery, appendectomy, cholecystectomy, tubal ligation, sinus surgery, and right hip surgery. ALLERGIES: ARANESP, LORTAB, TOVIAZ, AND CODEINE. SOCIAL HISTORY: The patient lives on [address], active Sikhism. , 25 years. Two daughters, one son, and one daughter living locally. She used to work for the [employer]. No tobacco or alcohol use. FAMILY HISTORY: Mother of lung cancer. Strong family history of heart disease, dementia, and gout. No end-stage renal disease. MEDICATIONS: Norvasc, Wellbutrin, Tums, Coreg, Colace, ferrous sulfate, Fosrenol, Synthroid, B complex with C, folic acid, Prilosec, MiraLAX, Coumadin, sliding scale, Tylenol, Xanax, and Percocet. REVIEW OF SYSTEMS: HEENT: No change in visual acuity. No epistaxis. No otic infection. No pharyngitis. PULMONARY: Notes persistent shortness of breath, and intermittent cough, nonproductive. No pleuritic chest pain. CARDIAC: No angina. Has chronic lower extremity edema. Denies dizziness or syncope. GASTROINTESTINAL: Intermittent nausea. No vomiting, melena, or diarrhea. GENITOURINARY: Has noted dysuria. No gross hematuria or pyuria. MUSCULOSKELETAL: Chronic pain in right hip. INTEGUMENT: No rash. No skin lesions. No itching. NEUROLOGIC: No lateralizing weakness or seizure activity. History And Physical [address] [place]. [address] NAME: STAN DUPONT : 37 STATUS : ADM Brad PAT#: [id number] AGE: 81 ADM/REG DATE : 08/25/16 MR#: [id number] REPORT SERV DATE: 08/26/16 DICTATED BY: RAYMUNDO GARSIA DATE: 08/25/16 REPORT STATUS : Draft TRANSCRIBED BY: YANA DATE: 08/25/16 Remainder of 12-point review of systems is negative. PHYSICAL EXAMINATION: VITAL SIGNS: Blood pressure 159/79, temperature 98.5, pulse 87, and respiratory rate 20. GENERAL: Pleasant female, alert and cooperative. HEENT: Eyes, no scleral icterus. Pupils equal and reactive to light. Extraocular movement intact. Nares patent, no discharge. Throat, no injection. Mucous membranes moist. NECK: No thyromegaly, masses, bruits. CHEST/LUNGS: Light crackles posteriorly. Few scattered rhonchi. CARDIAC: Regular rate and rhythm. A 1/6 systolic ejection murmur. No gallop. No rub. ABDOMEN: Supple. Normoactive bowel sounds. Nontender. No hepatosplenomegaly. GENITOURINARY: Not performed. RECTAL: Not performed. BREASTS: Not performed. DERMIS: No rash. No skin lesions. EXTREMITIES: Trace to 1+ edema. No calf tenderness. MUSCULOSKELETAL: No deformity. No joint tenderness. NEUROLOGIC: Cranial nerves intact. No lateralizing weakness. IMPRESSION: 1. Mild respiratory failure, possible congestive heart failure versus chronic obstructive pulmonary disease. 2. End-stage renal disease, dialyzing Saturday, Saturday, and Saturday at [facility] by left upper extremity arteriovenous fistula. 3. Chronic obstructive pulmonary disease. 4. Hypertension. 5. Bipolar disease. 6. Hypothyroidism. 7. [id number]-[id number] diastolic congestive heart failure. 8. Obstructive sleep apnea. 9. Anemia. PLAN: 1. Urine C and S. 2. Antibiotics. 3. Consider neb treatment. 4. Monitor for dialysis with UF. CG/YANA Raymundo Garsia M.D. / [id number] History And Physical [address] [address] NAME: STAN DUPONT SOFIA : 37 STATUS : ADM Brad PAT#: [id number] AGE: 81 ADM/REG DATE : 08/25/16 MR#: [id number] REPORT SERV DATE: 08/26/16 DICTATED BY: RAYMUNDO GARSIA DATE: 08/25/16 REPORT STATUS : Draft TRANSCRIBED BY: YANA DATE: 08/25/16 CC: Harshil Sigala M.D.
--- NOTE | ~2016-08-25 | DS ---
Discharge Summary [facility] [address] [place]. [address] NAME: STAN DA SILVA : 39 STATUS : DIS IN PAT#: [id number] AGE: 81 ADM/REG DATE : 08/25/16 MR#: [id number] REPORT SERV DATE: 09/11/16 DICTATED BY: JJ OSHEA DATE: 09/10/16 REPORT STATUS : Draft TRANSCRIBED BY: YANA DATE: 09/10/16 Data Collection from hospitalization DISCHARGE DIAGNOSES: 1. End-stage renal disease. 2. Chest pain, on hemodialysis. 3. Pneumonia. 4. Hypertension. 5. Chronic obstructive pulmonary disease. 6. Anemia. 7. Chronic diastolic congestive heart failure. 8. Obstructive sleep apnea, on CPAP. 9. Bipolar illness. 10.History of hepatitis. 11.Hypothyroidism. 12.History of remote herpes zoster infection. CONSULTATIONS: None. PROCEDURES PERFORMED: CT scan of the chest without contrast, 08/27/2016. MEDICATIONS: Tylenol 650 mg every six hours as needed; Xanax 0.125 to 0.25 mg twice a day as needed; Norvasc 10 mg at bedtime; Halfprin 81 mg daily; Wellbutrin SR 150 mg at 9 a.m. and 2 p.m.; Coreg 3.125 mg twice a day; Colace 100 mg twice a day; Lasix 40 mg on Tuesdays, , and Saturdays; Mucinex 600 mg twice a day as needed; Lamictal 25 mg daily; Fosrenol 500 mg with meals; Levaquin 750 mg every 48 hours; levothyroxine 125 mcg before breakfast; melatonin 3 mg at bedtime; Nitro-Bid ointment 0.5 inch topically every six hours as needed, Prilosec 20 mg before breakfast, MiraLAX powder one packet daily, Systane solution one drop as needed. She was instructed not to continue Cipro, sodium bicarbonate, B complex with C, and folic acid. CONDITION AT DISCHARGE: Stable. DISPOSITION: The patient was discharged home to be followed by home health care on a mechanical soft renal diet with activities as instructed. She would follow up at [facility] on Saturday, Saturday, Saturday schedule. HOSPITAL COURSE: This is a 81-year-old female, who dialyzes via left upper extremity fistula on Mondays, Wednesdays, and Fridays. She had recently been started on Cipro in the outpatient setting, but was still having some symptoms. Her urinalysis demonstrated 80 white blood cells and small leukocyte esterase. Her CBC revealed a white count of 5200 and a hemoglobin of 10.6. Her potassium was 3.3 and creatinine was 3.9. Her chest x-ray was suggestive of congestive heart failure. She had had a blood gas on room air with pO2 of 62 and O2 saturation of 91. She was felt to have mild respiratory failure and possible congestive heart failure versus chronic obstructive pulmonary disease. She was admitted to the hospital at this time for further evaluation and treatment. Upon admission, urine [employer] was going to be obtained. Antibiotics were started. We would Discharge Summary [address] [place]. [address] NAME: STAN DA SILVA : 39 STATUS : DIS IN PAT#: [id number] AGE: 81 ADM/REG DATE : 08/25/16 MR#: [id number] REPORT SERV DATE: 09/11/16 DICTATED BY: JJ OSHEA DATE: 09/10/16 REPORT STATUS : Draft TRANSCRIBED BY: YANA DATE: 09/10/16 consider nebulizer treatments the following day. She said she felt like she was smothering. She had no focal deficits. On the , hemodialysis therapy was performed. Her white count was 6.1. Her lungs were clear anteriorly. She had decreased bowel sounds. Chest x-ray showed worsening congestive heart failure. EKG was going to be checked. A CT scan of the chest without contrast was requested. On 08/28/2016, she did complain of some rib pain from excessive coughing. IV Levaquin was continued. A CT scan of the chest had shown cardiomegaly with minimal interstitial edema, small left effusion, and small to moderate right effusion. There were new 7- and 6-mm nodules in the right lower lobe. We would have an additional CT scan follow up in three months. She has persistent compressive atelectasis and consolidation in the posterior aspect of the lower lobes. There were new small infiltrates in the posterior aspect of the right upper lobe and in the medial aspect of the right lower lobe that were suspicious for multifocal pneumonia. She was evaluated by Physical Therapy. The following day, hemodialysis therapy continued. Occupational Therapy evaluated the patient. Discharge planning was performed. On 08/30/2016, she looked good. She was ready to go home. She was alert and had no focal deficits. Discharge instructions were given. Due to her improved and stable condition, she was discharged home to be followed by home health care with the above-stated instructions. Information collected by: Poornima Toney I submit the above information as my discharge summary. TG/YANA Jj Oshea M.D. / [id number] CC: Harshil Sigala M.D.
[~2016-08-25 15:03] MED LIST changes: +ALBUTEROL5 INH; +COREG3 PO; +FERROUS SULF325 M1 PO; +FOSRENOL PO; +L40 PO; +LAMICTAL25 PO; +MEGACEUDL PO; +MELA3 PO; +MIACALCIN NAS; +MIRALAX POWDER1 PKT PO; +PCET PO; +PERI-COLACE1 TAB PO; +PRILOSEC40 MG PO; +PULRESP.5 INH; +RENA-VITE PO; +SYN125 PO
[2016-08-25 15:46] LABS: ALLENS TEST Pos; BE (BASE EXCESS) 2.1 MEQ/L (0 +/- 2.5); CARBOXYHEMOGLOBIN 1.4 % (0-3); HCO3 (ACTUAL BICARBONATE) 24.6 MEQ/L (23-27); HEMOBLOGIN CONTENT 10.5 G/DL (12-16); INSTRUMENT SERIAL # 8087; METHEMOGLOBIN 0.2 % (0-3); O2 CONTENT 13.3 VOL% (18-24); PCO2 (CO2 TENSION) 31 MMHG (35-45); PO2 (O2 TENSION) 62 MMHG (79-93); SAMPLE Arterial; pH 7.52 (7.37-7.43)
[2016-08-25 16:23] LABS: BASOPHILS 1.1 %; BASOPHILS ABSOLUTE 0.06 10/3/uL (0.0-0.16); EOSINOPHILS ABSOLUTE 0.42 10/3/uL (0.0-0.53); HEMATOCRIT 31.8 % (36.0-48.0); HEMOGLOBIN 10.6 g/dL (12.0-16.0); IMMATURE GRANULOCYTES 0.2 %; IMMATURE GRANULOCYTES ABSOLUTE 0.01 10/3/uL (0.0-0.11); LYMPHOCYTES 29.4 %; LYMPHOCYTES ABSOLUTE 1.54 10/3/uL (0.67-4.30); MEAN CORPUS HGB CONC 33.3 g/dL (32.0-36.0); MEAN CORPUSCULAR HEMOGLOB 34.5 pg (26.0-34.0); MEAN CORPUSCULAR VOLUME 103.6 fL (80-100); MEAN PLATELET VOLUME 8.7 fL (9.2-13.0); MONOCYTES 12.4 %; MONOCYTES ABSOLUTE 0.65 10/3/uL (0.21-1.20); NEUTROPHILS 48.9 %; NEUTROPHILS ABSOLUTE 2.56 10/3/uL (2.02-8.40); RBC DISTRIBUTION WIDTH 14.4 % (12.0-16.0); RED CELL COUNT 3.07 10/6/uL (4.0-5.6); WHITE BLOOD CELLS 5.2 10/3/uL (4.5-10.5)
[2016-08-25 16:28] LABS: MANUAL DIFF NO %; PLATELET COUNT 207 10/3/uL (150-400)
[2016-08-25 16:34] LABS: INTERNATIONAL NORMAL RATI 1.2 UNITS (-); PARTIAL THROMBO TIME 44.3 SEC (22.5-37.2); PROTIME (NOT ORD) 14.9 SEC (12.0-14.5)
[2016-08-25 16:40] LABS: BUN (BLOOD UREA NITROGEN) 31 MG/DL (6-23); CHLORIDE, SERUM 99 MMOL/L (96-112); CO2 (CARBON DIOXIDE) 26 MMOL/L (24-34); GLUCOSE, SERUM 114 MG/DL (60-99); POTASSIUM, SERUM 3.3 MMOL/L (3.5-5.3); SODIUM, SERUM 136 MMOL/L (135-148)
[2016-08-25 16:41] LABS: GFR AFRICAN AMERICAN 12 ML/MIN (>=60); GFR NON AFRICAN AMERICAN 10 ML/MIN (>=60)
[2016-08-25 16:42] LABS: CHEST PAIN PROFILE TAT 0 Hrs 23 Mins; TROPONIN I 0.05 NG/ML (<0.05)
[2016-08-25 17:52] LABS: ASCORBIC ACID (UR NOT ORDER) NEG (NEG); BILIRUBIN, URINE NEGATIVE (NEG); ER URINALYSIS TAT 0 Hrs 18 Mins; KETONE, URINE NEGATIVE (NEG); LEUKOCYTE ESTERASE(NOT OR SMALL (NEG); NITRITE (URINE) NEG (NEG); WBC (NOT ORDERED) (RFLEX) 80 (0-5)
[2016-08-25] MEDS ORDERED: MIRALAX POWDER1 PKT PO (18:34)
[2016-08-25] MEDS ORDERED: WELLSR150 PO (18:35)
[2016-08-25] MEDS ORDERED: CIP2 PO (18:37)
[2016-08-25] MEDS ORDERED: COREG3 PO (18:38)
[2016-08-25] MEDS ORDERED: MUCINEX600 MG PO (18:38)
[2016-08-25] MEDS ORDERED: LAMICTAL25 PO (18:38)
[2016-08-25] MEDS ORDERED: HALF81 PO (18:38)
[2016-08-25] MEDS ORDERED: RENAL SFTGLS1 MG PO (18:39)
[2016-08-25] MEDS ORDERED: SODBICAR10 PO (18:39)
[2016-08-25] MEDS ORDERED: DSS PO (18:40)
[2016-08-25] MEDS ORDERED: L40 PO (18:40)
[2016-08-25] MEDS ORDERED: NORV10 PO (18:41)
[2016-08-25] MEDS ORDERED: MELA3 PO (18:41)
[2016-08-25] MEDS ORDERED: 8 HOUR650 MG PO (18:41)
[2016-08-25] MEDS ORDERED: PRILO PO (18:42)
[2016-08-25] MEDS ORDERED: FOSRENOL PO (18:42)
[2016-08-25] MEDS ORDERED: LEVOTHYROXIN125 MCG PO (18:42)
[2016-08-25] MEDS ORDERED: SYSTANE OPH (18:43)
[2016-08-25] MEDS ORDERED: X25 PO (18:58)
[2016-08-26 08:13] LABS: BASOPHILS 0.8 %; BASOPHILS ABSOLUTE 0.06 10/3/uL (0.0-0.16); EOSINOPHILS 6.7 %; EOSINOPHILS ABSOLUTE 0.48 10/3/uL (0.0-0.53); HEMATOCRIT 30.6 % (36.0-48.0); HEMOGLOBIN 10.2 g/dL (12.0-16.0); IMMATURE GRANULOCYTES 0.4 %; IMMATURE GRANULOCYTES ABSOLUTE 0.03 10/3/uL (0.0-0.11); LYMPHOCYTES 21.6 %; LYMPHOCYTES ABSOLUTE 1.54 10/3/uL (0.67-4.30); MEAN CORPUS HGB CONC 33.3 g/dL (32.0-36.0); MEAN CORPUSCULAR HEMOGLOB 34.3 pg (26.0-34.0); MONOCYTES 10.8 %; MONOCYTES ABSOLUTE 0.77 10/3/uL (0.21-1.20); NEUTROPHILS 59.7 %; NEUTROPHILS ABSOLUTE 4.25 10/3/uL (2.02-8.40); PLATELET COUNT 239 10/3/uL (150-400); RBC DISTRIBUTION WIDTH 14.4 % (12.0-16.0); RED CELL COUNT 2.97 10/6/uL (4.0-5.6); WHITE BLOOD CELLS 7.1 10/3/uL (4.5-10.5)
[2016-08-26 08:16] LABS: MANUAL DIFF NO %
[2016-08-26 08:25] LABS: ALBUMIN 2.9 G/DL (3.5-5.0); BUN (BLOOD UREA NITROGEN) 36 MG/DL (6-23); CALCIUM, SERUM 8.2 MG/DL (8.5-10.4); CHLORIDE, SERUM 100 MMOL/L (96-112); CO2 (CARBON DIOXIDE) 25 MMOL/L (24-34); CREATININE 4.47 MG/DL (0.55-1.02); GFR AFRICAN AMERICAN 10 ML/MIN (>=60); GFR NON AFRICAN AMERICAN 9 ML/MIN (>=60); GLUCOSE, SERUM 89 MG/DL (60-99); PHOSPHORUS, SERUM 4.3 MG/DL (2.5-4.5); SODIUM, SERUM 131 MMOL/L (135-148)
[2016-08-26 09:00] LABS: PROCALCITONIN 0.91 ng/mL (<0.5)
[2016-08-27 08:39] LABS: BASOPHILS 0.7 %; BASOPHILS ABSOLUTE 0.04 10/3/uL (0.0-0.16); EOSINOPHILS 6.9 %; EOSINOPHILS ABSOLUTE 0.42 10/3/uL (0.0-0.53); HEMOGLOBIN 9.9 g/dL (12.0-16.0); IMMATURE GRANULOCYTES 0.3 %; IMMATURE GRANULOCYTES ABSOLUTE 0.02 10/3/uL (0.0-0.11); LYMPHOCYTES 24.8 %; LYMPHOCYTES ABSOLUTE 1.51 10/3/uL (0.67-4.30); MEAN CORPUS HGB CONC 34.1 g/dL (32.0-36.0); MEAN CORPUSCULAR HEMOGLOB 34.6 pg (26.0-34.0); MEAN CORPUSCULAR VOLUME 101.4 fL (80-100); MEAN PLATELET VOLUME 8.9 fL (9.2-13.0); MONOCYTES 9.4 %; MONOCYTES ABSOLUTE 0.57 10/3/uL (0.21-1.20); NEUTROPHILS 57.9 %; NEUTROPHILS ABSOLUTE 3.53 10/3/uL (2.02-8.40); PLATELET COUNT 260 10/3/uL (150-400); RBC DISTRIBUTION WIDTH 14.1 % (12.0-16.0); RED CELL COUNT 2.86 10/6/uL (4.0-5.6); WHITE BLOOD CELLS 6.1 10/3/uL (4.5-10.5)
[2016-08-27 08:42] LABS: MANUAL DIFF NO %
[2016-08-27 08:49] LABS: ALBUMIN 2.7 G/DL (3.5-5.0); CALCIUM, SERUM 8.4 MG/DL (8.5-10.4); CHLORIDE, SERUM 100 MMOL/L (96-112); CO2 (CARBON DIOXIDE) 22 MMOL/L (24-34); GFR AFRICAN AMERICAN 8 ML/MIN (>=60); GFR NON AFRICAN AMERICAN 7 ML/MIN (>=60); GLUCOSE, SERUM 92 MG/DL (60-99); POTASSIUM, SERUM 4.4 MMOL/L (3.5-5.3); SODIUM, SERUM 133 MMOL/L (135-148)
[2016-08-27 08:52] LABS: BUN (BLOOD UREA NITROGEN) 45 MG/DL (6-23); CREATININE 5.46 MG/DL (0.55-1.02)
[2016-08-29 08:21] LABS: BASOPHILS 0.9 %; BASOPHILS ABSOLUTE 0.06 10/3/uL (0.0-0.16); EOSINOPHILS 10.4 %; EOSINOPHILS ABSOLUTE 0.72 10/3/uL (0.0-0.53); HEMATOCRIT 29.4 % (36.0-48.0); HEMOGLOBIN 9.7 g/dL (12.0-16.0); IMMATURE GRANULOCYTES 0.3 %; IMMATURE GRANULOCYTES ABSOLUTE 0.02 10/3/uL (0.0-0.11); LYMPHOCYTES 30.6 %; LYMPHOCYTES ABSOLUTE 2.13 10/3/uL (0.67-4.30); MEAN CORPUSCULAR HEMOGLOB 34.3 pg (26.0-34.0); MEAN CORPUSCULAR VOLUME 103.9 fL (80-100); MEAN PLATELET VOLUME 8.7 fL (9.2-13.0); MONOCYTES 9.1 %; MONOCYTES ABSOLUTE 0.63 10/3/uL (0.21-1.20); NEUTROPHILS 48.7 %; NEUTROPHILS ABSOLUTE 3.39 10/3/uL (2.02-8.40); PLATELET COUNT 309 10/3/uL (150-400); RBC DISTRIBUTION WIDTH 14.6 % (12.0-16.0); RED CELL COUNT 2.83 10/6/uL (4.0-5.6)
[2016-08-29 08:28] LABS: MANUAL DIFF NO %
[2016-08-29 08:36] LABS: BUN (BLOOD UREA NITROGEN) 46 MG/DL (6-23); CALCIUM, SERUM 8.2 MG/DL (8.5-10.4); CHLORIDE, SERUM 105 MMOL/L (96-112); CO2 (CARBON DIOXIDE) 26 MMOL/L (24-34); CREATININE 5.37 MG/DL (0.55-1.02); GFR AFRICAN AMERICAN 8 ML/MIN (>=60); GFR NON AFRICAN AMERICAN 7 ML/MIN (>=60); GLUCOSE, SERUM 80 MG/DL (60-99); PHOSPHORUS, SERUM 5.1 MG/DL (2.5-4.5); SODIUM, SERUM 137 MMOL/L (135-148)
[2016-08-30 07:05] LABS: BASOPHILS 1.1 %; BASOPHILS ABSOLUTE 0.08 10/3/uL (0.0-0.16); EOSINOPHILS ABSOLUTE 0.57 10/3/uL (0.0-0.53); HEMATOCRIT 30.3 % (36.0-48.0); HEMOGLOBIN 9.9 g/dL (12.0-16.0); IMMATURE GRANULOCYTES 0.3 %; IMMATURE GRANULOCYTES ABSOLUTE 0.02 10/3/uL (0.0-0.11); LYMPHOCYTES 31.7 %; LYMPHOCYTES ABSOLUTE 2.25 10/3/uL (0.67-4.30); MEAN CORPUS HGB CONC 32.7 g/dL (32.0-36.0); MEAN CORPUSCULAR HEMOGLOB 34.7 pg (26.0-34.0); MEAN CORPUSCULAR VOLUME 106.3 fL (80-100); MEAN PLATELET VOLUME 8.5 fL (9.2-13.0); MONOCYTES 7.6 %; MONOCYTES ABSOLUTE 0.54 10/3/uL (0.21-1.20); NEUTROPHILS 51.3 %; NEUTROPHILS ABSOLUTE 3.63 10/3/uL (2.02-8.40); PLATELET COUNT 335 10/3/uL (150-400); RBC DISTRIBUTION WIDTH 14.5 % (12.0-16.0); RED CELL COUNT 2.85 10/6/uL (4.0-5.6); WHITE BLOOD CELLS 7.1 10/3/uL (4.5-10.5)
[2016-08-30 07:08] LABS: MANUAL DIFF NO %
[2016-08-30 07:22] LABS: ALBUMIN 3.1 G/DL (3.5-5.0); CALCIUM, SERUM 8.5 MG/DL (8.5-10.4); CHLORIDE, SERUM 106 MMOL/L (96-112); CO2 (CARBON DIOXIDE) 28 MMOL/L (24-34); GLUCOSE, SERUM 96 MG/DL (60-99); POTASSIUM, SERUM 4.7 MMOL/L (3.5-5.3); SODIUM, SERUM 139 MMOL/L (135-148)
[2016-08-30 07:23] LABS: BUN (BLOOD UREA NITROGEN) 35 MG/DL (6-23); CREATININE 4.02 MG/DL (0.55-1.02); GFR AFRICAN AMERICAN 12 ML/MIN (>=60); GFR NON AFRICAN AMERICAN 10 ML/MIN (>=60); PHOSPHORUS, SERUM 3.9 MG/DL (2.5-4.5)
[2016-08-30] MEDS ORDERED: LEVAQUIN750 MG PO (10:53)
[2016-08-30] MEDS ORDERED: NITROBID2 % TOP (10:55)
[2016-10-08] MEDS ORDERED: LAMICTAL10 PO (08:55)
[2016-10-08] MEDS ORDERED: COREG6 PO (08:55)
[2016-10-08] MEDS ORDERED: RENAL SFTGLS1 MG PO (09:00)
[2016-10-08] MEDS ORDERED: TUMSROLL PO (09:00)
[2016-10-08] MEDS ORDERED: IMOD PO (09:01)
[2016-10-08] MEDS ORDERED: BIST PO (09:01)
[2016-10-08] MEDS ORDERED: FENESIN IR400 MG PO (09:02)
[2016-10-08] MEDS ORDERED: AT25 PO (09:03)
[2016-10-08] MEDS ORDERED: ENDOCET1 TAB PO (09:04)
[2016-10-08] MEDS ORDERED: LIPITOR20 PO (09:04)
[2016-10-08] MEDS ORDERED: PROCRIT (09:06)
[2016-10-08] MEDS ORDERED: WELLSR100 PO (11:00)
[2016-12-18] MEDS ORDERED: LATUDA40 MG PO (08:09)
[2016-12-25] MEDS ORDERED: NITROII20C TOP (17:26)
== END 2016-08-30 13:57 | disposition home health service (06) | DRG 291 ==
LOC: ER 15:03 → 4SO 19:48
PROVIDERS: Emergency Medicine; Internal Medicine Nephrology; Nurse Practitioner
PROC: 5A1D60Z (ICD-10-PCS; principal; 2016-08-27)
DX: I13.2 Hypertensive heart and chronic kidney disease with heart failure and with stage 5 chronic kidney disease, or end stage renal disease (principal); N18.6 End stage renal disease; J96.21 Acute and chronic respiratory failure with hypoxia; J18.9 Pneumonia, unspecified organism; D63.1 Anemia in chronic kidney disease; E11.22 Type 2 diabetes mellitus with diabetic chronic kidney disease; N39.0 Urinary tract infection, site not specified; I50.33 Acute on chronic diastolic (congestive) heart failure; J44.0 Chronic obstructive pulmonary disease with (acute) lower respiratory infection; Z99.2 Dependence on renal dialysis; E03.9 Hypothyroidism, unspecified; G47.33 Obstructive sleep apnea (adult) (pediatric); F31.9 Bipolar disorder, unspecified; Z79.4 Long term (current) use of insulin; Z79.01 Long term (current) use of anticoagulants; Z79.891 Long term (current) use of opiate analgesic; R53.1 Weakness; R07.89 Other chest pain; Z86.19 Personal history of other infectious and parasitic diseases; Z88.5 Allergy status to narcotic agent; Z88.8 Allergy status to other drugs, medicaments and biological substances
CPT/HCPCS: 36600; 71010; 71250; 80048; 80069; 81001; 82805; 83735; 83880; 84145; 84443; 84484; 85025; 85610; 85730; 87086; 93005; 94640; 97116-GP; 97161-GP; 97165-GO; 97535-GO; 99285; A9270-GY; G0257; G8987-CJ-GO; G8988-CJ-GO; G8989-CJ-GO; J1956; P9047

== ENCOUNTER 2016-09-03 13:03 | Emergency (ER) | payer BC ==
[2016-09-03 12:52] LABS: BASOPHILS 1.2 %; BASOPHILS ABSOLUTE 0.09 10/3/uL (0.0-0.16); EOSINOPHILS 7.5 %; EOSINOPHILS ABSOLUTE 0.59 10/3/uL (0.0-0.53); ER CBC TAT 0 Hrs 05 Mins; HEMOGLOBIN 10.5 g/dL (12.0-16.0); IMMATURE GRANULOCYTES 0.3 %; IMMATURE GRANULOCYTES ABSOLUTE 0.02 10/3/uL (0.0-0.11); LYMPHOCYTES 23.9 %; LYMPHOCYTES ABSOLUTE 1.87 10/3/uL (0.67-4.30); MANUAL DIFF NO %; MEAN CORPUS HGB CONC 32.8 g/dL (32.0-36.0); MEAN CORPUSCULAR HEMOGLOB 33.9 pg (26.0-34.0); MEAN CORPUSCULAR VOLUME 103.2 fL (80-100); MEAN PLATELET VOLUME 8.4 fL (9.2-13.0); MONOCYTES 10.2 %; NEUTROPHILS 56.9 %; NEUTROPHILS ABSOLUTE 4.45 10/3/uL (2.02-8.40); PLATELET COUNT 325 10/3/uL (150-400); RBC DISTRIBUTION WIDTH 14.3 % (12.0-16.0); WHITE BLOOD CELLS 7.8 10/3/uL (4.5-10.5)
[~2016-09-03 13:03] MED LIST changes: +8 HOUR650 MG PO; +LEVAQUIN750 MG PO; +LEVOTHYROXIN125 MCG PO; +MUCINEX600 MG PO; +NITROBID2 % TOP
[2016-09-03 13:16] LABS: A/G RATIO 1.1 (0.7-1.9); ACETAMINOPHEN LEVEL (TYLENOL) 3.2 MCG/ML (10.0-20.0); ALBUMIN 3.5 G/DL (3.5-5.0); CALCIUM, SERUM 8.5 MG/DL (8.5-10.4); CHLORIDE, SERUM 105 MMOL/L (96-112); CO2 (CARBON DIOXIDE) 24 MMOL/L (24-34); GLOBULIN 3.2 G/DL (2.5-4.1); GLUCOSE, SERUM 90 MG/DL (60-99); POTASSIUM, SERUM 4.1 MMOL/L (3.5-5.3); SALICYLATE 2.1 MG/DL (-); SGOT(AST) 11 U/L (5-40); SGPT(ALT) 16 U/L (5-65); SODIUM, SERUM 142 MMOL/L (135-148); TOTAL BILIRUBIN 0.9 MG/DL (0-1.2); TOTAL PROTEIN 6.7 G/DL (6.0-8.5)
[2016-09-03 13:20] LABS: ALCOHOL < 10 MG/DL (0); ALKALINE PHOSPHATASE 96 U/L (45-117); BUN (BLOOD UREA NITROGEN) 52 MG/DL (6-23); CREATININE 6.51 MG/DL (0.55-1.02); GFR AFRICAN AMERICAN 6 ML/MIN (>=60); GFR NON AFRICAN AMERICAN 6 ML/MIN (>=60)
[2016-10-08] MEDS ORDERED: LAMICTAL10 PO (08:55)
[2016-10-08] MEDS ORDERED: COREG6 PO (08:55)
[2016-10-08] MEDS ORDERED: TUMSROLL PO (09:00)
[2016-10-08] MEDS ORDERED: RENAL SFTGLS1 MG PO (09:00)
[2016-10-08] MEDS ORDERED: BIST PO (09:01)
[2016-10-08] MEDS ORDERED: IMOD PO (09:01)
[2016-10-08] MEDS ORDERED: FENESIN IR400 MG PO (09:02)
[2016-10-08] MEDS ORDERED: AT25 PO (09:03)
[2016-10-08] MEDS ORDERED: LIPITOR20 PO (09:04)
[2016-10-08] MEDS ORDERED: ENDOCET1 TAB PO (09:04)
[2016-10-08] MEDS ORDERED: PROCRIT (09:06)
[2016-10-08] MEDS ORDERED: WELLSR100 PO (11:00)
[2016-12-18] MEDS ORDERED: LATUDA40 MG PO (08:09)
[2016-12-25] MEDS ORDERED: NITROII20C TOP (17:26)
== END 2016-09-03 14:40 | disposition home or self-care (01) ==
LOC: ER 13:03
PROVIDERS: Emergency Medicine
DX: F41.9 Anxiety disorder, unspecified (principal); N18.6 End stage renal disease; F32.9 Major depressive disorder, single episode, unspecified; I50.9 Heart failure, unspecified; Z99.2 Dependence on renal dialysis; Z88.5 Allergy status to narcotic agent; Z88.8 Allergy status to other drugs, medicaments and biological substances; Z79.82 Long term (current) use of aspirin; Z79.899 Other long term (current) drug therapy
CPT/HCPCS: 80053; 80305; 80307; 84443; 85025; 99283